=== PATIENT | male | born 1990 | race African-American/Black ===

== ENCOUNTER 2018-06-01 11:14 | Emergency (ER) | payer SELFPAY ==
[2018-06-01] MEDS ORDERED: DIPHENHYDRAMINE HCL 50 MG/ML VIAL IM ONE (11:43)
[2018-06-01] MEDS ORDERED: METHYLPREDNISOLONE INJ 125 MG/2 ML SDV IM ONE (11:43)
--- NOTE | 2018-06-01 11:46 | ER Document Report ---
ED Medical Screen (RME) - General Chief Complaint: Facial Swelling Stated Complaint: SWOLLEN FACE Time Seen by Provider: 06/01/18 11:43 Mode of Arrival: Ambulatory Information source: Patient - HPI Patient complains to provider of: facial swelling Onset: Yesterday - pt started with facial swelling 2 days ago. No new meds, soaps, detergents, insect bite, etc. Took some benadryl yesterday but still swollen - Related Data Allergies/Adverse Reactions: No Known Allergies Allergy (Verified 06/01/18 11:38) Past Medical History - Social History Chew tobacco use (# tins/day): No Frequency of alcohol use: None Drug Abuse: None Pulmonary Medical History: Reports: Hx Asthma Renal/ Medical History: Denies: Hx Peritoneal Dialysis Physical Exam - Vital signs Vitals: Temp Pulse Resp BP Pulse Ox 99.1 F 117 H 14 120/70 99 06/01/18 11:40 06/01/18 11:40 06/01/18 11:40 06/01/18 11:40 06/01/18 11:40 Course - Vital Signs Vital signs: Temp Pulse Resp BP Pulse Ox 99.1 F 117 H 14 120/70 99 06/01/18 11:40 06/01/18 11:40 06/01/18 11:40 06/01/18 11:40 06/01/18 11:40 Doctor's Discharge - Discharge Referrals: ROBERTO SHEETS MD [Primary Care Provider] - Follow up as needed
[2018-06-01 12:33] LABS: HEMATOCRIT 31.6 % (37.9-51.0); MEAN CORPUSCULAR HEMOGLOBIN 28.4 pg (27.0-33.4); MEAN CORPUSCULAR HGB CONC 34.8 g/dL (32.0-36.0); MEAN CORPUSCULAR VOLUME 82 fl (80-97); PLATELET COUNT 223 10^3/uL (150-450); RED BLOOD COUNT 3.87 10^6/uL (4.35-5.55); RED CELL DISTRIBUTION WIDTH 12.9 % (11.5-14.0); WHITE BLOOD COUNT 5.3 10^3/uL (4.0-10.5)
[2018-06-01 12:41] LABS: ALANINE AMINOTRANSFERASE 18 U/L (21-72); ALKALINE PHOSPHATASE 70 U/L (38-126); ANION GAP 11 (5-19); ASPARTATE AMINO TRANSFERASE 30 U/L (17-59); BILIRUBIN,DIRECT 0.1 mg/dL (0.0-0.4); BILIRUBIN,TOTAL 0.5 mg/dL (0.2-1.3); BLOOD UREA NITROGEN 11 mg/dL (7-20); CALCIUM 8.8 mg/dL (8.4-10.2); CARBON DIOXIDE 29 mmol/L (22-30); CHLORIDE 94 mmol/L (98-107); GLUCOSE 99 mg/dL (75-110); POTASSIUM 4.5 mmol/L (3.6-5.0); SODIUM 133.6 mmol/L (137-145); TOTAL PROTEIN 8.9 g/dL (6.3-8.2)
[2018-06-01 12:50] LABS: ABSOLUTE LYMPHOCYTES# (MANUAL) 0.8 10^3/uL (0.5-4.7); ABSOLUTE MONOCYTES # (MANUAL) 0.5 10^3/uL (0.1-1.4); BASOPHILS % (MANUAL) 0 % (0-2); EOSINOPHILS % (MANUAL) 1 % (0-6); LYMPHOCYTES % (MANUAL) 12 % (13-45); MONOCYTES % (MANUAL) 9 % (3-13); SEGMENTED NEUTROPHILS % (MAN) 75 % (42-78); TOTAL CELLS COUNTED 100
[2018-06-01 12:51] LABS: OVALOCYTES 1+; PLATELET COMMENT ADEQUATE; POIKILOCYTOSIS 1+
--- NOTE | 2018-06-01 13:45 | ER Document Report ---
ED General - General Mode of Arrival: Ambulatory Information source: Patient <KATHARINE MAHONEY - Last Filed: 06/01/18 19:55> <ISAÍAS EPPS - Last Filed: 06/01/18 20:13> - General Chief Complaint: Facial Swelling Stated Complaint: SWOLLEN FACE Time Seen by Provider: 06/01/18 11:43 Notes: 27-year-old male who presents to the emergency department today with complaints of "facial swelling". Patient states he initially noticed these areas 4 days ago which began as a "small knot on his forehead". Patient states he took Benadryl for this but did not notice any change in his symptoms. Patient states that the area on his forehead has become larger since onset and he has also noticed a similar area on his left jaw. Patient states he has noticed that when he takes a shower the areas seem to have some drainage. (KATHARINE MAHONEY) - Related Data Allergies/Adverse Reactions: No Known Allergies Allergy (Verified 06/01/18 11:38) Past Medical History - General Information source: Patient - Social History Smoking Status: Never Smoker Cigarette use (# per day): No Chew tobacco use (# tins/day): No Frequency of alcohol use: None Drug Abuse: None Lives with: Family Family History: Reviewed & Not Pertinent Patient has suicidal ideation: No Patient has homicidal ideation: No Pulmonary Medical History: Reports: Hx Asthma Surgical Hx: Negative <KATHARINE MAHONEY - Last Filed: 06/01/18 19:55> Review of Systems - Review of Systems Constitutional: denies: Fever EENT: No symptoms reported Cardiovascular: No symptoms reported Respiratory: No symptoms reported Gastrointestinal: No symptoms reported Genitourinary: No symptoms reported Male Genitourinary: No symptoms reported Musculoskeletal: No symptoms reported Skin: See HPI, Other - abscess to right forehead, left jaw Hematologic/Lymphatic: No symptoms reported Neurological/Psychological: No symptoms reported -: Yes All other systems reviewed and negative <KATHARINE MAHONEY - Last Filed: 06/01/18 19:55> Physical Exam <KATHARINE MAHONEY - Last Filed: 06/01/18 19:55> - Vital signs Vitals: Temp Pulse Resp BP Pulse Ox 99.1 F 117 H 14 120/70 99 06/01/18 11:40 06/01/18 11:40 06/01/18 11:40 06/01/18 11:40 06/01/18 11:40 - Notes Notes: PHYSICAL EXAM GENERAL: Alert, interacts well. No acute distress. HEAD: Normocephalic, atraumatic. EYES: Pupils equal, round, and reactive to light. Extraocular movements intact. Slight ptosis on the right. ENT: Oral mucosa moist, tongue midline. NECK: Full range of motion. Supple. Trachea midline. LUNGS: Clear to auscultation bilaterally, no wheezes, rales, or rhonchi. No respiratory distress. HEART: Regular rate and rhythm. EXTREMITIES: Moves all 4 extremities spontaneously. NEUROLOGICAL: Alert and oriented x3. Normal speech. PSYCH: Normal affect, normal mood. SKIN: Warm and dry. 2 cm area of fluctuance that is tender to palpation superior to the right medial eyebrow. No spontaneous drainage although there is a crusted area to the inferior aspect of the fluctuance consistent with prior drainage. There is mild surrounding erythema. Swelling does not include the right upper eyelid. There is also a secondary area measuring 2 cm of fluctuance, tenderness, and mild erythema to the left mandible with active purulent drainage. (KATHARINE MAHONEY) Course - Laboratory Result Diagrams: 06/01/18 12:05 06/01/18 12:05 <KATHARINE MAHONEY - Last Filed: 06/01/18 19:55> - Laboratory Result Diagrams: 06/01/18 12:05 06/01/18 12:05 <ISAÍAS EPPS - Last Filed: 06/01/18 20:13> - Re-evaluation Re-evalutation: 06/01/18 15:58 CBC does not show any leukocytosis, there is mild anemia followed as an outpatient, CMP shows low sodium 133.6, otherwise unremarkable, Facial examination shows 2 facial abscesses, one along medial eyebrow and one along the left jawline. Both areas were anesthetized and incised and drained, pus was obtained, patient will be treated with Bactrim and Keflex, Epsom salt soaks and discharged home. Patient was warned of possibility of scarring as I am incising his face. Patient does have some drooping of the right eyebrow, this is likely coming from increased pressure from an abscess directly over top right infraorbital nerve, incision was not made over top of the infraorbital nerve, suspect that after the pressure subsides patient will no longer have drooping of the right eyelid. (ISAÍAS EPPS) - Vital Signs Vital signs: Temp Pulse Resp BP Pulse Ox 100.2 F 96 14 121/77 98 06/01/18 16:14 06/01/18 16:14 06/01/18 11:40 06/01/18 16:14 06/01/18 16:14 - Laboratory Laboratory results interpreted by me: 06/01/18 06/01/18 12:05 12:05 RBC 3.87 L Hgb 11.0 L Hct 31.6 L Lymphocytes % (Manual) 12 L Sodium 133.6 L Chloride 94 L ALT 18 L Total Protein 8.9 H Procedures - Incision and Drainage Right side forehead Type: Complex Anesthetic type: 1% Lidocaine mL's of anesthetic: 2 Blade size: 11 I&D procedure: Shurclens applied Incision Method: Incision made by scalpel Amount/type of drainage: Copious purulent and bloody discharge obtained Left side of the jaw Type: Complex Anesthetic type: 1% Lidocaine mL's of anesthetic: 3 Blade size: 11 I&D procedure: Shurclens applied Incision Method: Incision made by scalpel Amount/type of drainage: Small amount of bloody and purulent drainage <ISAÍAS EPPS - Last Filed: 06/01/18 20:13> - Incision and Drainage Right side forehead Notes: 06/01/18 16:04 Loculations broken up with blunt dissection (ISAÍAS EPPS) Left side of the jaw Notes: 06/01/18 16:05 Loculations broken up with blunt dissection (ISAÍAS EPPS) Discharge <KATHARINE MAHONEY - Last Filed: 06/01/18 19:55> <ISAÍAS EPPS - Last Filed: 06/01/18 20:13> - Discharge Clinical Impression: Facial abscess Condition: Stable Disposition: HOME, SELF-CARE Additional Instructions: Abscess You have an abscess (boil). This a pus-forming infection, usually due to staph. Some boils may be left to drain on their own, but most require lancing. From the time the tender lump first appears, it may be three or four days before the abscess is ready to khloe. Local heat and rest help at this stage of treatment. An antibiotic may prevent spread of the infection. Once the abscess is opened, packing may be placed into it. This is done so pus is not sealed inside by premature closure of the cavity. The packing will be removed at your follow-up visit or you may be advised to remove it yourself at home. Sometimes this packing must be replaced a few times during healing. The wound will heal with surprisingly little scar. Depending on the size and location of an abscess, healing can take one to four weeks. You may shower and wash the area around the incision site two or three times a day. Antibiotics may be prescribed, but are usually not necessary after an abscess has been drained. If you develop fever, chilling, worsening pain, or increasing swelling in the area, call the doctor or return immediately. Post Incision and Drainage You have had an incision made to allow drainage of an abscess. The incision must remain open so that pus and debris can drain from the wound. If the abscess cavity is large, packing is placed. This keeps the tissues from collapsing and trapping pus inside, while the body shrinks the cavity. The packing may need to be replaced every day or two. The physician will instruct you on the packing. Keep a bulky dressing over the area. Replace it if it becomes saturated with blood or pus. Do not disturb the packing (if present). You may shower and cleanse the area with gentle soap and warm water two or three times a day. Local warmth may be soothing, and may promote faster healing. Return if you develop high fever or chills, or if you note spreading redness, increasing swelling, or increasing tenderness. Epsom Salt Soaks Soak the wound area in a container of warm epsom salt water. If you can't get the wound area into a bucket or moore, use a folded towel soaked in the epsom salt solution and apply to the area. Use clean hot tap water (about the temperature of a very warm bath), mixing in about one (1) teaspoon for every pint of water. Two gallon --> 16 teaspoons Epsom Salts One gallon --> 8 teaspoons Epsom Salts Two quarts --> 4 teaspoons Epsom Salts One quart --> 2 teaspoons Epsom Salts Soak the wound for about 20 minutes while gently moving it around in the water. Repeat this four (4) times a day. Prescriptions: Hydrocodone/Acetaminophen [[place] 5-325 mg Tablet] 1 tab PO Q4HP PRN #10 tablet PRN Reason: Cephalexin Monohydrate [Keflex 500 mg Capsule] 500 mg PO Q6H 7 Days capsule Sulfamethoxazole/Trimethoprim [Bactrim Ds Tablet] 1 each PO BID #14 tablet Referrals: ROBERTO SHEETS MD [COMMUNITY BASED STAFF] - Follow up as needed Scribe Attestation: 06/01/18 20:13 I personally performed the services described in the documentation, reviewed and edited the documentation which was dictated to the scribe in my presence, and it accurately records my words and actions. (ISAÍAS EPPS) Scribe Documentation - Scribe Written by [place]:: Malvin Cross, 06/01/20182001 acting as scribe for :: Jessica <KATHARINE MAHONEY - Last Filed: 06/01/18 19:55>
[2018-06-01] MEDS ORDERED: SULFAMETHOXAZOLE/TRIMETHOPRIM 800-160 MG TABLET PO ONE (14:07)
[2018-06-01] MEDS ORDERED: CEPHALEXIN 500 MG CAPSULE PO ONE (14:07)
[2018-06-01] MEDS ORDERED: LIDOCAINE 1% INJ-PF (10 MG/ML) 30 ML SDV INJ ONE (14:07)
[2018-06-01] MEDS ORDERED: LIDOCAINE 4%/TETRACAINE 0.5%/EPI 0.18% 5 ML TOPICAL SOLN TOP ONE (14:07)
[2018-06-01 16:26] VITALS: BP 121/77
== END 2018-06-01 16:20 | disposition home or self-care (01) ==
LOC: ER 11:14
DX: L02.01 Cutaneous abscess of face (principal); J45.909 Unspecified asthma, uncomplicated; D64.9 Anemia, unspecified
CPT/HCPCS: 99283; 36415; 85025; 80053; 10061; J1200; J3490 ×2; J2930